=== PATIENT | male | born 1970 | race Caucasian/White ===

== ENCOUNTER 2020-10-23 20:01 | Emergency (ER) | payer OTHER ==
--- NOTE | 2020-10-23 21:41 | EDM.PDOC ---
ED HPI GENERAL MEDICAL PROBLEM - General Chief Complaint: Syncope Stated Complaint: HOT FLASHES, PASSING OUT Time Seen by Provider: 10/23/20 21:17 Source of Information: Reports: Patient, Family History Limitations: Reports: No Limitations - History of Present Illness INITIAL COMMENTS - FREE TEXT/NARRATIVE: patient presents to the ER tonight due to concern about not feeling good/well all day. he states having episodes of hot/flushed/sweaty sensations. increasing SOB/difficulty breathing more than his baseline. has history of asthma and covid infection 2 dec--started on inhaled steroid due several months ago due to continued SOB sensation after COVID infection. states his stomach as been hard all day, L-side abdominal pain/rib cage area. denies any N/V/D, normal stool reported. he also reports syncopal episode-- states she was rubbing some tiger balm on his neck/behind ear when episode occurred with very brief LOC. he also states he took devika-seltzer this morning due to reported heartburn sensation--this provided him good relief PMH--asthma, obesity, HTN, COVID 19 (14 Jun 2020) Meds--metoprolol, losartin, albuterol inhaler, advair inhaler Allergies--amilodipine (leg swelling/edema) Tob/drugs--denies EtOH--occ beer Left Lower Abdomen Pain Score (Numeric/FACES): 4 - Related Data Allergies Allergy/AdvReac Type Severity Reaction Status Date / Time amlodipine Allergy Edema Verified 10/23/20 22:56 Home Meds: Home Meds Albuterol [Ventolin HFA] 1 puff .XX ASDIRECTED PRN 10/23/20 [History] Fluticasone/Salmeterol [Fluticasone-Salmeterol 113-14 MCG Powder Inh] 1 puff IH DAILY 10/23/20 [History] Losartan [Cozaar] 100 mg PO DAILY 10/23/20 [History] Metoprolol Succinate 50 mg PO DAILY 10/23/20 [History] Past Medical History HEENT History: Reports: None Cardiovascular History: Reports: Hypertension Respiratory History: Reports: Asthma Gastrointestinal History: Reports: None Genitourinary History: Reports: None Musculoskeletal History: Reports: Fracture Neurological History: Reports: None Psychiatric History: Reports: None Endocrine/Metabolic History: Reports: None Hematologic History: Reports: None Immunologic History: Reports: None Oncologic (Cancer) History: Reports: None Dermatologic History: Reports: None - Infectious Disease History Infectious Disease History: Reports: Chicken Pox - Past Surgical History HEENT Surgical History: Reports: None GI Surgical History: Reports: None Musculoskeletal Surgical History: Reports: Other (See Below) Other Musculoskeletal Surgeries/Procedures:: foot surg Social & Family History - Tobacco Use Tobacco Use Status *Q: Never Tobacco User - Caffeine Use Caffeine Use: Reports: Coffee, Soda - Recreational Drug Use Recreational Drug Use: No ED ROS GENERAL - Review of Systems Review Of Systems: See Below Constitutional: Reports: Fever, Malaise, Weakness, Diaphoresis HEENT: Reports: No Symptoms Respiratory: Reports: Shortness of Breath Cardiovascular: Reports: Syncope. Denies: Chest Pain, Lightheadedness, Palpitations Endocrine: Reports: No Symptoms GI/Abdominal: Reports: Abdominal Pain. Denies: Diarrhea, Nausea, Vomiting : Reports: No Symptoms Musculoskeletal: Reports: No Symptoms Skin: Reports: No Symptoms Neurological: Reports: Syncope. Denies: Confusion, Dizziness, Trouble Speaking, Change in Speech, Gait Disturbance Psychiatric: Reports: No Symptoms Hematologic/Lymphatic: Reports: No Symptoms Immunologic: Reports: No Symptoms - Physical Exam Exam: See Below Exam Limited By: No Limitations General Appearance: Alert, WD/WN, No Apparent Distress, Obese Eye Exam: Bilateral Eye: EOMI, Normal Inspection, PERRL Ears: Normal External Exam Nose: Normal Inspection Throat/Mouth: Normal Inspection, Normal Lips, Normal Oropharynx, Normal Voice, No Airway Compromise Head Exam: Atraumatic, Normocephalic Neck: Normal Inspection, Supple, Non-Tender, Full Range of Motion. No: Carotid Bruit, Thyromegaly Respiratory/Chest: No Respiratory Distress (speech normal, no noted tachypnea/dy spnea; conversationally intact), Lungs Clear, Normal Breath Sounds, Chest Non- Tender Cardiovascular: Normal Peripheral Pulses, No Edema, No Murmur, Tachycardia GI/Abdominal: Normal Bowel Sounds, Soft, Non-Tender, Other (obese). No: Guarding, Rigid (Male) Exam: Deferred Rectal (Males) Exam: Deferred Neuro Exam (Abbreviated): Alert, Oriented, CN II-XII Intact, Normal Cognition, No Motor/Sensory Deficits Back Exam: Normal Inspection Extremities: Normal Inspection, Normal Range of Motion, No Pedal Edema, Normal Capillary Refill Psychiatric: Normal Affect, Normal Mood Skin Exam: Warm, Dry, Intact, Normal Color #1 Interpretation EKG Date: 10/23/20 Time: 20:17 (read at 2158) Rate (Beats/Min): 113 [place]: Normal P-Wave: Present (LA-147) QRS: Normal (QRS-96) ST-T: Normal QT: Normal (QT/QTc-330/453) Comparison: NA - No Prior EKG (sinus tachycardia; no STEMI) Course - Vital Signs Text/Narrative:: 2245--d/w patient and spouse at bedside initial ER findings. mild hypomag-1.7 will give dose of mag oxide, chest film neg, EKG noted for mild tachycardia, d-dimer-289/negative, mild elevation of WBC-11 and mild anemia H/H-44/34. trop- 0.018, would expect to be negative so will repeat in 90 min/2330 for final determination in care. continues to be comfortable, no dyspnea/conversationally intact, no chest pain/discomfort. all questions answered at this time 0009--repeat trop-0.018 (range is 0-0.056 thus this is again negative). d/w with patient and spouse today's ER findings. recommend ensure adequate rest/sleep, good hydration/drinking plenty of water/juice/sports drinks of choice, consider daily aspirin if not already taking. follow up with family doctor in the next 3-5 days; return to the ER if worsening symptoms of concern. verbalized understanding/agreement with plan of care Last Recorded V/S: Last Vital Signs Temp 98.0 F 10/23/20 20:12 Pulse 113 H 10/23/20 21:45 Resp 14 10/23/20 21:45 BP 109/77 10/23/20 21:45 Pulse Ox 96 10/23/20 21:45 - Orders/Labs/Meds Orders: Active Orders 24 hr Category Date Time Status EKG Documentation Completion [RC] ASDIRECTED Care 10/23/20 21:42 Active Pulse Oximetry [RC] CONTINUOUS Care 10/23/20 21:41 Active Chest 2V [CR] Urgent Exams 10/23/20 21:41 Taken EKG 12 Lead [EK] Urgent Ther 10/23/20 21:41 Ordered Labs: Laboratory Tests 10/23/20 10/23/20 10/23/20 Range/Units 21:54 21:54 21:54 WBC 11.2 H (4.5-11.0) K/uL RBC 3.55 L (4.30-5.90) M/uL Hgb 11.4 L (12.0-15.0) g/dL Hct 34.5 L (40.0-54.0) % MCV 97 (80-98) fL MCH 32 H (27-31) pg MCHC 33 (32-36) % Plt Count 234 (150-400) K/uL Neut % (Auto) 79 H (36-66) % Lymph % (Auto) 13 L (24-44) % [place] % (Auto) 8 H (2-6) % Eos % (Auto) 0 L (2-4) % Baso % (Auto) 0 (0-1) % D-Dimer, Quantitative 289.66 (0.0-500.0) ng/mL Sodium 141 (140-148) mmol/L Potassium 4.9 (3.6-5.2) mmol/L Chloride 105 (100-108) mmol/L Carbon Dioxide 25 (21-32) mmol/L Anion Gap 11.1 (5.0-14.0) mmol/L BUN 31 H (7-18) mg/dL Creatinine 0.9 (0.8-1.3) mg/dL Est Cr Clr Drug Dosing 108.51 mL/min Estimated GFR (MDRD) > 60 (>60) Glucose 125 H (74-106) mg/dL Calcium 8.9 (8.5-10.1) mg/dL Magnesium 1.7 L (1.8-2.4) mg/dL Total Bilirubin 0.5 (0.2-1.0) mg/dL AST 26 (15-37) U/L ALT 35 (12-78) U/L Alkaline Phosphatase 39 L (46-116) U/L Troponin I (0.000-0.056) ng/mL Total Protein 6.4 (6.4-8.2) g/dL Albumin 3.2 L (3.4-5.0) g/dL Globulin 3.2 (2.3-3.5) g/dL Albumin/Globulin Ratio 1.0 L (1.2-2.2) 10/23/20 10/23/20 Range/Units 21:54 23:30 WBC (4.5-11.0) K/uL RBC (4.30-5.90) M/uL Hgb (12.0-15.0) g/dL Hct (40.0-54.0) % MCV (80-98) fL MCH (27-31) pg MCHC (32-36) % Plt Count (150-400) K/uL Neut % (Auto) (36-66) % Lymph % (Auto) (24-44) % [place] % (Auto) (2-6) % Eos % (Auto) (2-4) % Baso % (Auto) (0-1) % D-Dimer, Quantitative (0.0-500.0) ng/mL Sodium (140-148) mmol/L Potassium (3.6-5.2) mmol/L Chloride (100-108) mmol/L Carbon Dioxide (21-32) mmol/L Anion Gap (5.0-14.0) mmol/L BUN (7-18) mg/dL Creatinine (0.8-1.3) mg/dL Est Cr Clr Drug Dosing mL/min Estimated GFR (MDRD) (>60) Glucose (74-106) mg/dL Calcium (8.5-10.1) mg/dL Magnesium (1.8-2.4) mg/dL Total Bilirubin (0.2-1.0) mg/dL AST (15-37) U/L ALT (12-78) U/L Alkaline Phosphatase (46-116) U/L Troponin I 0.018 0.018 (0.000-0.056) ng/mL Total Protein (6.4-8.2) g/dL Albumin (3.4-5.0) g/dL Globulin (2.3-3.5) g/dL Albumin/Globulin Ratio (1.2-2.2) Meds: Medications Discontinued Medications Generic Name Dose Route Start Last Admin Trade Name Freq PRN Reason Stop Dose Admin Magnesium Oxide 400 mg 10/23/20 22:44 10/23/20 23:38 Magnesium Oxide 400 Mg Tab PO 10/23/20 22:45 400 mg ONETIME ONE Administration - Radiology Interpretation Free Text/Narrative:: Chest 2V--preliminary: no acute process, final radiology reading pending Departure - Departure Time of Disposition: 00:13 Disposition: Home, Self-Care 01 Clinical Impression: Shortness of breath, History of COVID-19, Mild anemia, Hypomagnesemia, Syncope, Tachycardia - Discharge Information *PRESCRIPTION DRUG MONITORING PROGRAM REVIEWED*: Not Applicable *COPY OF PRESCRIPTION DRUG MONITORING REPORT IN PATIENT [place]: Not Applicable Instructions: Shortness of Breath, Adult, [id number], Syncope, [id number] Referrals: Molly Catalan PA [Primary Care Provider] - Forms: ED Department Discharge Additional Instructions: Ensure you are drinking plenty of fluids--water/juice/sports drinks of choice; avoid excessive alcohol usage Ensure you are getting plenty of rest/sleep Use your medications as prescribed by your family doctor, if you are not taking a daily aspirin you may want to consider starting Please schedule an ER follow up with your doctor in the next 3-5 days; return to the ER if any change in symptoms of concern Sepsis Event Note (ED) - Evaluation Sepsis Screening Result: No Definite Risk - Focused Exam Vital Signs: Vital Signs Temp Pulse Resp BP Pulse Ox 10/23/20 21:45 113 H 14 109/77 96 10/23/20 21:10 111 H 16 115/77 96 10/23/20 20:12 98.0 F 116 H 16 144/80 H 97 - My Orders Last 24 Hours: My Active Orders 10/23/20 21:41 Pulse Oximetry [RC] CONTINUOUS Chest 2V [CR] Urgent EKG 12 Lead [EK] Urgent 10/23/20 21:42 EKG Documentation Completion [RC] ASDIRECTED - Assessment/Plan Last 24 Hours: My Active Orders 10/23/20 21:41 Pulse Oximetry [RC] CONTINUOUS Chest 2V [CR] Urgent EKG 12 Lead [EK] Urgent 10/23/20 21:42 EKG Documentation Completion [RC] ASDIRECTED
[2020-10-23] MEDS ORDERED: Magnesium Oxide 400 MG Tab PO ONE (22:44)
--- NOTE | 2020-10-24 09:30 | CR ---
CHEST: 2 view CLINICAL HISTORY:Syncope, history of covid COMPARISON:None FINDINGS: The heart size, pulmonary vascularity and hilar structures are normal. No infiltrate effusion or pneumothorax is seen. IMPRESSION: No acute cardiopulmonary process.
== END 2020-10-24 00:27 | disposition home or self-care (01) ==
LOC: JP.ED 20:01
DX: D64.9 Anemia, unspecified (principal); E83.42 Hypomagnesemia; R55 Syncope and collapse; J45.909 Unspecified asthma, uncomplicated; I10 Essential (primary) hypertension; Z88.8 Allergy status to other drugs, medicaments and biological substances; Z86.16 Personal history of COVID-19; Z79.899 Other long term (current) drug therapy
CPT/HCPCS: 36415; 71046; 80053; 83735; 84484; 85025; 85379; 93005; 99285; A9270

== ENCOUNTER 2022-01-13 16:59 | Observation (INO) | payer OTHER ==
[2022-01-13] MEDS ORDERED: Diphtheria,Pertussis(Acell),Tetanus Vaccine 0.5 ML Syringe IM ONE (18:42)
[2022-01-13 19:08] LABS: ESTIMATED GFR 106 mL/min (>60)
[2022-01-13] MEDS ORDERED: Lidocaine/Epineph/Tetracaine 3 ML Syringe TOP ONE (20:52)
[2022-01-13] MEDS ORDERED: Bacitracin Oint 1 GM U/D Packet TOP ONE (20:52)
[2022-01-13] MEDS ORDERED: LORazepam 2 MG/ML SDV IV PRN (21:04)
[2022-01-13] MEDS ORDERED: Ondansetron 4 MG Tab.DIS PO PRN (21:04)
[2022-01-13] MEDS ORDERED: Morphine 2 MG/ML SYRINGE IVPUSH PRN (21:04)
[2022-01-13] MEDS ORDERED: Acetaminophen 325 MG Tab PO PRN (21:04)
[2022-01-13] MEDS ORDERED: oxyCODONE 5 MG Tab PO PRN (21:04)
[2022-01-13] MEDS ORDERED: Promethazine 6.25 MG in Sodium Chloride 0.9% 50 ML IV PRN (21:04)
[2022-01-13] MEDS ORDERED: Albuterol 0.083% 2.5 MG/3 ML Neb Soln NEB PRN (21:25)
[2022-01-13 21:48] LABS: CORONAVIRUS COVID-19 NAA NEGATIVE (NEGATIVE)
[2022-01-14] MEDS ORDERED: Metoprolol Succinate 50 MG Tab.ER PO SCH (09:00)
[2022-01-14] MEDS ORDERED: Losartan 50 MG Tab PO SCH (09:00)
== END 2022-01-14 14:25 | disposition home or self-care (01) ==
LOC: JP.ED 16:59 → JP.MS 21:04
PROVIDERS: ADMIT Family Medicine; ATTEND Hospitalist
DX: S06.5X9A Traumatic subdural hemorrhage with loss of consciousness of unspecified duration, initial encounter (principal); S01.81XA Laceration without foreign body of other part of head, initial encounter; F10.920 Alcohol use, unspecified with intoxication, uncomplicated; I10 Essential (primary) hypertension; J45.909 Unspecified asthma, uncomplicated; Z20.822 Contact with and (suspected) exposure to COVID-19; Z88.8 Allergy status to other drugs, medicaments and biological substances; Z79.51 Long term (current) use of inhaled steroids; Z79.52 Long term (current) use of systemic steroids; Z79.899 Other long term (current) drug therapy; W19.XXXA Unspecified fall, initial encounter; Y92.096 Garden or yard of other non-institutional residence as the place of occurrence of the external cause
CPT/HCPCS: 0241U; 36415; 70450; 70486; 80053; 80307; 85025; 90715; 99217; A9270-GY; J2060

== ENCOUNTER 2022-07-31 16:14 | Emergency (ER) | payer OTHER ==
[2022-07-31 17:44] LABS: ESTIMATED GFR 115 mL/min (>60)
[2022-08-01] MEDS ORDERED: LORazepam 1 MG Tab PO ONE ×2 (03:12→08:31)
== END 2022-08-01 09:01 | disposition home or self-care (01) ==
LOC: JP.ED 16:14
DX: R45.851 Suicidal ideations (principal); F39 Unspecified mood [affective] disorder; F10.10 Alcohol abuse, uncomplicated; I10 Essential (primary) hypertension; J45.909 Unspecified asthma, uncomplicated; Y90.7 Blood alcohol level of 200-239 mg/100 ml; Z79.899 Other long term (current) drug therapy; Z88.8 Allergy status to other drugs, medicaments and biological substances; Z20.822 Contact with and (suspected) exposure to COVID-19
CPT/HCPCS: 36415; 80053; 80305-QW; 80307; 85025; 99284; 99285; A9270-GY; U0002